=== PATIENT | male | born 2000 | race Caucasian/White ===

== ENCOUNTER 2023-11-29 12:44 | Emergency (ER) | payer MEDICAID, OTHER ==
[~2023-11-29] VITALS: Ht 177.8 cm; Wt 95.0 kg
[2023-11-29 12:56] VITALS: O2SAT 97
[2023-11-29] MEDS ORDERED: PERM60CR4 TP (14:35)
[2023-11-29 15:40] VITALS: BP 130/69; PULSE 98; RESP 18; TEMP 98.7
== END 2023-11-29 15:41 | disposition home or self-care (01) ==
LOC: ER 12:44
DX: B86 Scabies (principal); Z88.0 Allergy status to penicillin
CPT/HCPCS: 99281; 99282

== ENCOUNTER 2023-12-15 14:48 | Emergency (ER) | payer MEDICAID ==
[~2023-12-15] VITALS: Ht 175.3 cm; Wt 100.0 kg
[~2023-12-15 14:48] MED LIST: PERM60CR4 TP
[2023-12-15 15:30] VITALS: BP 149/66; PULSE 99; RESP 16; TEMP 98.5; O2SAT 97
[2023-12-15] MEDS ORDERED: IBUP-1525 MT (16:25)
[2023-12-15] MEDS ORDERED: SULF15DR26 LEFTEYE (16:25)
== END 2023-12-15 16:43 | disposition home or self-care (01) ==
LOC: ER 14:48
DX: B34.9 Viral infection, unspecified (principal); H10.89 Other conjunctivitis; J45.909 Unspecified asthma, uncomplicated; E78.00 Pure hypercholesterolemia, unspecified; F19.90 Other psychoactive substance use, unspecified, uncomplicated; Z88.0 Allergy status to penicillin
CPT/HCPCS: 99282

== ENCOUNTER 2024-01-31 15:57 | Emergency (ER) | payer MEDICAID ==
[~2024-01-31] VITALS: Ht 177.8 cm; Wt 100.0 kg
[~2024-01-31 15:57] MED LIST changes: +IBUP-1525 MT; +SULF15DR26 LEFTEYE
[2024-01-31 16:02] VITALS: BP 147/74; PULSE 80; RESP 20; TEMP 98.5; O2SAT 97
== END 2024-01-31 16:13 | disposition home or self-care (01) ==
LOC: ER 15:57
DX: B86 Scabies (principal); J45.909 Unspecified asthma, uncomplicated; E78.00 Pure hypercholesterolemia, unspecified; Z88.0 Allergy status to penicillin; Z86.59 Personal history of other mental and behavioral disorders
CPT/HCPCS: 99282

== ENCOUNTER 2024-03-03 21:23 | Emergency (ER) | payer MEDICAID ==
[~2024-03-03] VITALS: Ht 177.8 cm; Wt 94.0 kg
[2024-03-03 22:14] VITALS: BP 136/78; PULSE 98; RESP 18; TEMP 97.8; O2SAT 98
[2024-03-03] MEDS ORDERED: PERM60CR4 TP (22:45)
== END 2024-03-03 23:03 | disposition home or self-care (01) ==
LOC: ER 21:23
DX: R21 Rash and other nonspecific skin eruption (principal); J45.909 Unspecified asthma, uncomplicated; F32.A Depression, unspecified; E78.00 Pure hypercholesterolemia, unspecified; F19.90 Other psychoactive substance use, unspecified, uncomplicated; Z88.0 Allergy status to penicillin
CPT/HCPCS: 99282

== ENCOUNTER 2024-03-20 14:12 | Emergency (ER) | payer MEDICAID ==
[~2024-03-20] VITALS: Ht 177.8 cm; Wt 97.5 kg
[2024-03-20 14:34] VITALS: BP 114/52; PULSE 71; TEMP 98.8; O2SAT 98
[2024-03-20] MEDS ORDERED: HYDR30CR80 TP (14:52)
== END 2024-03-20 15:25 | disposition home or self-care (01) ==
LOC: ER 14:12
DX: K60.2 Anal fissure, unspecified (principal); R19.7 Diarrhea, unspecified; J45.909 Unspecified asthma, uncomplicated; F32.9 Major depressive disorder, single episode, unspecified
CPT/HCPCS: 99281